=== PATIENT | female | born 1975 | race Caucasian/White ===

== ENCOUNTER 2022-08-11 16:34 | Emergency (ER) | payer OTHER, SELFPAY ==
[2022-08-11 16:35] VITALS: BP 143/98; PULSE 96; RESP 15; TEMP 36.6; O2SAT 100; BMI 18.8
--- NOTE | 2022-08-11 16:54 | EDS_ITS ---
HPI History of Present Illness Chief Complaint: Chest Pain Detail of Chief Complaint: Recent diagnosis of influenza about 5 days ago. Informant: patient Onset/Context/Timing Onset: Days Activity at onset: gradual Timing: Intermittent Quality: Positive for Aching, Sharp and Stabbing Location: Substernal Current Severity: Mild Maximum Severity: Mild Worsened By: Coughing; Not Worsened By Exertion Relieved By: Nothing Associated Symptoms: Positive for Nausea and Cough; Negative for Vomiting, Diaphoresis, Dyspnea, Fever, Lightheadedness, Acid Reflux or Palpitations Narrative Narrative: 47-year-old female history of anxiety. No cardiac disease history. No history of DVT or PE. No risk factors. States she tested positive for influenza about 5 days ago. States she has been feeling well. Fever and chills. Fever as high as 101.9. States she has developed some chest discomfort last several days primarily sharp midsternal. Also in her ribs. Primarily worse with coughing. The pain is intermittent. She has had nausea no vomiting or diarrhea. Decreased urinary output feels like she may be dehydrated. No hemoptysis. No leg pain or swelling. Prior Similar Symptoms: No Recent Illness/Hospitalization: No CVD Risk Factors: Negative for Hypertension, Diabetes or Hypercholesterolemia PE Risk Factors: Negative for Recent Travel/Surgery, Recent Immobilization, Prior DVT or PE, Cancer or OCP + Smoking + >/=35 TAD Risk Factors: Negative for Marfan's Syndrome [facility] Medical History Alcohol use Anxiety COVID Easy bruising History of echocardiogram History of stress test Leaky heart valve Smoker Wears dentures Wears glasses Home Medications buspirone 10 mg tablet 10 mg PO DAILY 10/08/21 [History Last Taken Unknown] citalopram 40 mg tablet 40 mg PO DAILY 10/08/21 [History Last Taken Unknown] Allergy/AdvReac Type Severity Reaction Status Date / Time Penicillins [PCN] Allergy PT UNSURE Verified 10/08/21 15:41 OF REACTION Surgical History History of bilateral hip replacements History of breast lump removal History of hysterectomy Social History Smoking Status: Current some day smoker tobacco type: cigarettes ROS ROS ED ROS Narrative Cough, fever and chills, nausea. Review of Systems ROS Unobtainable: Denies due to encephalopathy Constitutional Constitutional ED: Reports chills and fever(s) Eyes Eyes: Reports none ENT ENT ED: Denies ear pain or rhinorrhea Cardiovascular Cardiovascular: Reports as per HPI and chest pain; Denies palpitations or racing heartbeat Respiratory/Chest Respiratory/Chest: Reports cough; Denies dyspnea Gastrointestinal Gastrointestinal: Reports nausea; Denies abdominal pain, constipation, diarrhea, melena or vomiting Genitourinary Genitourinary ED: Denies dysuria or hematuria Musculoskeletal Musculoskeletal: Denies arthralgias Integumentary Denies abscess Neurologic Neurologic: Denies headache(s) Psychiatric Psychiatric: Denies anxiety Endocrine Endocrinology: Denies cold intolerance Hematologic/Lymphatic Hematologic/Lymphatic: Denies easy bleeding Allergic/Immunologic Allergic/Immunologic ED: Denies mouth swelling or tongue swelling EXAM Physical Exam Narrative Exam Narrative: Well-appearing 47-year-old female. Vital signs stable afebrile. Pulse ox high percent on room air no signs hypoxia. H EENT exam unremarkable. Moist Riis members. Neck nontender no lymphadenopathy. Lungs clear to auscultation bilaterally. Dry cough. Heart regular rhythm rate about 95 no murmur. Chest wall no ecchymosis or bruising. No subcu air crepitus. No significant tenderness. Abdomen soft nontender normal bowel sounds no peritoneal signs. Moving all 4 extremities. Calves are nontender without edema or cords. Radial pulses are equal symmetrical. Back exam nontender. Neurologic exam normal. Const Vital Signs: 08/11/22 16:35 08/11/22 16:51 08/11/22 16:56 Temperature 97.9 F Temperature Source Temporal Pulse Rate 96 Respiratory Rate 15 Respiratory Effort Normal Non-Labored Respiratory Pattern Normal Blood Pressure 143/98 H Blood Pressure Mean 113 Pulse Ox 100 Oxygen Delivery Method Room Air Room Air Positive well nourished and well developed; Negative for obese, cachectic, contractures or unkempt General Appearance ED: well developed and NAD; Negative for unkempt, cachectic, contractures or pallor Nutritional Appearance: Negative for cachectic or obese HEENT Reports moist mucous membranes normocephalic and atraumatic; Negative for trauma or tenderness Eyes PERRL and EOMs intact bilaterally General Eye ED: Negative for pale conjunctiva or scleral icterus Neck no lymphadenopathy, supple and no JVD General: Negative for tenderness Chest Wall inspection of chest normal and palpation of chest normal Chest: Negative for tenderness Resp normal respiratory effort and clear to auscultation bilaterally Effort and Inspection: Negative for respiratory distress Auscultation: Negative for rales, rhonchi or wheezes Cardio regular rate, regular rhythm, S1 normal heart sound, S2 normal heart sound and no murmurs Rate: Negative for bradycardia or tachycardic Rhythm: Negative for abnormal rhythm Peripheral Pulses: pulses 2+ throughout GI normal to inspection, nondistended, normoactive bowel sounds, soft to palpation, non-tender, non-distended and no masses Auscultation: Negative for hyperactive bowel sounds Palpation: Negative for splenomegaly Back/Spine no CVA tenderness and no thoracic nor lumbar tenderness General Back: Negative for CVA tenderness Cervical Spine: Negative for cervical spine tenderness Extremity normal to inspection General Extremety ED: Negative for edema, pulses abnormal or tenderness General Extremity: Negative for edema or pulses abnormal Neuro oriented x3 and CN's II-XII intact bilaterally Sensorium / Orientation: awake, alert, oriented to person, oriented to place and oriented to time; Negative for confused, lethargic or stuporous Motor Exam: strength 5/5 throughout Psych mental status grossly normal Appearance: Negative for unkempt Attitude: No agitated Mood & Affect: anxious; Negative for depressed or tearful Skin no rashes or lesions noted and no wounds General Skin Exam: Negative for jaundice or pallor Rashes: No rashes noted Trauma: Negative for abrasion or laceration MDM MDM MDM Narrative Medical decision making narrative: 47-year-old female with URI symptoms with a positive influenza test around 5 days ago. Clinically negative influenza. Rule out pneumonia. The chest pain I do not think is a DVT or PE. No history or risk factors. I do not think it is cardiac either. She will undergo cardiac work-up. IV fluids for mild dehydration and labs. Repeat exam patient is doing well at 5:50 PM. She and I went over her laboratory tests, x-ray and EKG. She is comfortable being discharged home. Clinically I think this is all from her influenza. Fluids and rest. Tylenol Motrin. Off work the next 3 days. Lab Data Attestation: I reviewed the patient's lab results. Lab results narrative: CBC shows white count 3.8. H&H of 15.1 and 44. Platelets 142,000. Electrolytes show potassium 3.4 gap is 7. Normal BUN and creatinine. Glucose 108. Troponin is 4. She has had pain for days I do not think a second troponin is necessary. Clinically this is not cardiac chest pain. Labs: Laboratory Results - last 24 hr 08/11/22 08/11/22 17:00 17:00 WBC 3.8 L RBC 4.67 Hgb 15.1 H Hct 44.5 MCV 95.3 MCH 32.3 H MCHC 33.9 RDW Std Deviation 44.7 H RDW Coeff of Derrick 12.5 Plt Count 142 L MPV 9.7 Immature Gran % (Auto) 0.300 Neut % (Auto) 51.2 Lymph % (Auto) 39.7 Luna % (Auto) 8.2 Eos % (Auto) 0.3 Baso % (Auto) 0.3 Absolute Neuts (auto) 2.0 Absolute Lymphs (auto) 1.51 Nucleated RBC % 0 Sodium 137 Potassium 3.4 L Chloride 102 Carbon Dioxide 28.0 Anion Gap 7 BUN 9 Creatinine 0.64 Estim Creat Clear Calc 94.41 Est GFR (MDRD) Af Amer 125 Est GFR (MDRD) Non-Af 104 BUN/Creatinine Ratio 14.0 Glucose 108 H Calcium 8.9 Troponin I High Sens 4 Radiography Chest X-Ray - ED: 1 View, Read by ED Physician, Heart, Lungs, Mediastinum, Bony Structures, No Acute Disease and Chronic Changes Diagnostic Testing: Chest x-ray, portable, single view interpreted by myself shows no acute abnormality. Normal cardiac silhouette. Normal mediastinum. No infiltrates. No pneumonia. Rhythm Strip Rhythm Strip: Sinus Rhythm Rate: 91 Ectopy: None EKG Initial EKG: Attestation: I personally reviewed and interpreted this EKG as follows: Interpretation: Sinus Rhythm and No Acute Injury Pattern Comments: Normal sinus rhythm rate of 91 no acute signs of TN or ischemia. Normal EKG. Discharge Plan Triage Chief Complaint: Chest Pain ED Provider: Mathieu Blake Dx/Rx/DC Orders Clinical Impression: Chest pain, Influenza Instructions: ED Influenza (Adult) Prescriptions: No Action citalopram 40 mg tablet 40 mg PO DAILY Label Comments: TAKE ONE TABLET BY MOUTH ONCE DAILY buspirone 10 mg tablet 10 mg PO BID Label Comments: TAKE ONE TABLET BY MOUTH TWICE DAILY Primary Care Provider: Tish Bartlett NP Referrals: Tish Bartlett [employer], [employer] [Primary Care Provider] - 3-5 Days if not improving Town Doctor,Out of [Non-Staff] - Activity Restrictions/Additional Instructions: Plenty of fluids and rest. Alternate Tylenol and Motrin for body aches, fever and pain. Follow-up with your primary care provider if not improving or return if worse. Off work the next 3 days. Disposition Disposition: Home, Self Care
--- NOTE | 2022-08-11 17:05 | RAD_ITS ---
EXAM: XR CHEST, 1 VIEW CLINICAL INDICATION: chest pain TECHNIQUE: Frontal view of the chest. This report was created using [employer] report generation technology. COMPARISON: None. FINDINGS: LUNGS AND PLEURAL SPACES: Unremarkable. No consolidation or edema. No pneumothorax. No effusion. HEART: Unremarkable. Cardiac silhouette not enlarged. MEDIASTINUM: Central airways and mediastinal contour are unremarkable. BONES/JOINTS: Unremarkable. SOFT TISSUES: Unremarkable. RAD/Chest 1 View (Portable) IMPRESSION: No radiographic evidence of acute cardiopulmonary disease. Electronically Signed: Samir Casillas MD at 17:58 EST ,
[2022-08-11 17:20] LABS: Absolute Lymphocyte Count 1.51 X10^3/uL (0.83-4.51); Basophil# 0.01 X10^3/uL; Basophil% 0.3 % (0-1); Eosinophil# 0.01 X10^3/uL; Eosinophils% 0.3 % (0-5); Hematocrit 44.5 % (37-47); Hemoglobin 15.1 g/dL (12.0-15.0); Lymphocyte # 1.51 X10^3/ul (0.83-4.51); Lymphocyte % 39.7 % (19-41); Mean Corp Hgb Conc 33.9 g/dL (32-36); Mean Corpuscular Hgb 32.3 pg (27.0-32.0); Mean Corpuscular Volume 95.3 fL (81-99); Mean Platelet Vol. 9.7 fl (6.2-12.0); Monocyte# 0.31 X10^3/uL; Monocyte% 8.2 % (0-10); NRBC Flagged by Analyzer 0 % (0-5); Neutrophil # 1.95 X10^3/uL (2.7-7.7); Neutrophil % 51.2 % (47-70); Platelet Count 142 K/mm3 (150-450); RBC Distribution Width CV 12.5 % (11.6-14.6); RBC Distribution Width SD 44.7 fl (35.1-43.9); Red Blood Count 4.67 M/mm3 (4.2-5.4); White Blood Count 3.8 K/mm3 (4.4-11.0)
[2022-08-11 17:42] LABS: Anion Gap 7 (5-15); BUN 9 mg/dL (7-18); Calcium,Total 8.9 mg/dL (8.5-10.1); Chloride 102 mmol/L (98-107); Creatinine, Serum 0.64 mg/dL (0.55-1.02); EST Glomerular Filtration Rate 104 mL/min (>60); Est Glom Filt Rate - Afr Amer 125 mL/min (>60); Estimated Creatinine Clearance 94.41 ml/min; Glucose 108 mg/dL (74-106); Potassium 3.4 mmol/L (3.5-5.1); Sodium Level 137 mmol/L (136-145); Troponin-I HS (w/2H Reflex) 4 pg/mL (3.0-54.0)
[2022-08-11 17:58] VITALS: BP 128/95; PULSE 76; RESP 14; O2SAT 99
[2022-08-11 19:09] LABS: Reflex Troponin-HS? (from REC) Y
== END 2022-08-11 17:59 | disposition home or self-care (01) ==
PROVIDERS: Emergency Provider Emergency Medicine; PCP Nurse Practitioner Primary Care; Visit Provider Emergency Medicine
DX: R07.9 Chest pain, unspecified (principal); J11.1 Influenza due to unidentified influenza virus with other respiratory manifestations; F41.9 Anxiety disorder, unspecified; F17.210 Nicotine dependence, cigarettes, uncomplicated; Z86.16 Personal history of COVID-19; Z79.899 Other long term (current) drug therapy
CPT/HCPCS: 71045; 80048; 84484; 85025; 93005; 99285; A4216

== ENCOUNTER → 2023-06-30 | Outpatient (CLI) | payer BC, SELFPAY ==
--- NOTE | 2023-06-30 11:49 | EKG12_ITS ---
Test Reason : PREOP Blood Pressure : / mmHG Vent. Rate : 074 BPM Atrial Rate : 074 BPM P-R Int : 098 ms QRS Dur : 082 ms QT Int : 374 ms P-R-T Axes : 069 060 050 degrees QTc Int : 415 ms Sinus rhythm with short KS Otherwise normal ECG Confirmed by MAURICIO CAICEDO, CORY ([id number]), editorial intern SAJAN LOPEZ ([id number]) on 07/09/2023 9:47:38 AM Referred By: Haile Salazar Confirmed By:CORY MARTÍNEZ MD
[2023-06-30 13:20] LABS: Hematocrit 38.5 % (37-47); Hemoglobin 12.5 g/dL (12.0-15.0); Mean Corp Hgb Conc 32.5 g/dL (32-36); Mean Corpuscular Hgb 32.3 pg (27.0-32.0); Mean Corpuscular Volume 99.5 fL (81-99); Mean Platelet Vol. 9.6 fl (6.2-12.0); Platelet Count 236 K/mm3 (150-450); RBC Distribution Width CV 13.1 % (11.6-14.6); RBC Distribution Width SD 48.2 fl (35.1-43.9); Red Blood Count 3.87 M/mm3 (4.2-5.4); White Blood Count 7.9 K/mm3 (4.4-11.0)
[2023-06-30 13:46] LABS: Anion Gap 5 (5-15); BUN 18 mg/dL (7-18); BUN/Creat Ratio 29.3 RATIO (10-20); Calcium,Total 8.9 mg/dL (8.5-10.1); Chloride 106 mmol/L (98-107); Creatinine, Serum 0.62 mg/dL (0.55-1.02); EST Glomerular Filtration Rate 109 mL/min (>60); Est Glom Filt Rate - Afr Amer 132 mL/min (>60); Glucose 92 mg/dL (74-106); Potassium 3.9 mmol/L (3.5-5.1); Sodium Level 139 mmol/L (136-145)
== END | disposition home or self-care (01) ==
PROVIDERS: PCP Nurse Practitioner Primary Care; Referring Provider Otolaryngology; Visit Provider Otolaryngology
DX: Z01.812 Encounter for preprocedural laboratory examination (principal); Z01.810 Encounter for preprocedural cardiovascular examination
CPT/HCPCS: 36415; 80048; 85027; 93005

== ENCOUNTER → 2023-07-09 | Outpatient (CLI) | payer BC, SELFPAY ==
--- NOTE | 2023-07-08 | SOF_PTH ---
PATIENT: KAMINI SMITH LOC: [facility] U#:[id number] AGE/SX: 48/F ROOM: RE07/09/[address]: Dr. Parish Salazar MD : 1975 BED: DIS: 07/09/2023 SPEC #: [id number] RECD: 07/11/23 14:42 STATUS: PHILIP REVel #: [id number] CHLOE: 07/08/23 00:[address]: Parish Salazar DEPT: SURGICAL PATHOLOGY RECD BY: Leilain Keane ENTERED: 07/11/23 14:42 SP TYPE: SOFT TISS OTHR DR: Tish Bartlett, SONALI-Mike [facility] Tissues: Soft tissues, NOS Procedures: Surgery Specimen Level III HEADER OPERATION: Excision submental lipoma PRE-OP DIAGNOSIS: Localized swelling, mass and lump neck TISSUE SUBMITTED: Submental mass MICROSCOPIC DIAGNOSIS Submental mass, excision: Angiolipoma. AM:lucas 07/14/2023 MICROSCOPIC DESCRIPTION Slides are reviewed. GROSS DESCRIPTION Received is one container labeled with the patient's name and not further designated. The specimen consists of two irregular fragments of yellow fatty tissue ranging in size from 0.5 to 2.2 cm. The largest fragment is bisected to reveal homogenous yellow cut surfaces. Brassiere Cup Mold Cutter sections from both fragments are submitted in one cassette. / AM:lucas 07/11/2023 TC:1 CPT: 36962
== END | disposition home or self-care (01) ==
LOC: LABSPEC 16:14
PROVIDERS: PCP Nurse Practitioner Primary Care; Referring Provider Otolaryngology; Visit Provider Otolaryngology
DX: R22.1 Localized swelling, mass and lump, neck (principal)
CPT/HCPCS: 88304